=== PATIENT | male | born 1980 | race Caucasian/White ===

== ENCOUNTER 2020-01-14 11:12 | Emergency (ER) | payer OTHER ==
[~2020-01-14] VITALS: Ht 190.5 cm; Wt 109.9 kg
[2020-01-14 11:14] VITALS: BP 146/97
== END 2020-01-14 12:04 | disposition home or self-care (01) ==
LOC: ED 12:01
DX: G89.11 Acute pain due to trauma (principal); M25.562 Pain in left knee; F17.200 Nicotine dependence, unspecified, uncomplicated; X50.1XXA Overexertion from prolonged static or awkward postures, initial encounter; Y93.01 Activity, walking, marching and hiking; Y92.832 Beach as the place of occurrence of the external cause; Y99.8 Other external cause status
CPT/HCPCS: 99283